=== PATIENT | male | born 1965 | race Caucasian/White ===

== ENCOUNTER 2016-09-09 08:03 | Emergency (ER) | payer OTHER ==
--- NOTE | 2016-09-09 10:40 | DIAGNOSTIC IMAGING REPORT ---
PROCEDURE: XR SHOULDER 2 OR MORE VW-RIGHT INDICATION: TRAUMA/INJURY TECHNIQUE: Three views. COMPARISON: Right shoulder films 03/13/15 FINDINGS: Normal mineralization. Dystrophic calcifications at the distal clavicle with chronic distal clavicular elevation, AC joint, and CC interval separation. No acute fractures. Glenohumeral joint is in normal alignment. No suspicious or new soft tissue calcifications. Visible rib arcs underlying lungs are normal. IMPRESSION: 1. 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
--- NOTE | 2016-09-09 11:12 | ED CLINICAL REPORT ---
Clinical Report - Physicians/Mid Levels [facility] [address] [place] [address] 09/09/2016 8:05 Patient: KALE PHILIP Time Seen: 0955. Arrived- By private vehicle. Historian- patient. HISTORY OF PRESENT ILLNESS Chief Complaint: Injury to the right shoulder and Chief Complaint- fall about a month ago. The injury happened a month ago. Occurred at home. ( rotator cuff injury and "scrapping" "bicep relocation"). Fell. Patient denies injury to the head or neck. No other injury. REVIEW OF SYSTEMS No swelling, weakness, suspected foreign body or skin laceration. All systems otherwise negative, except as recorded above. PAST HISTORY See nurses notes. Medications: None. Allergies: Soma. SOCIAL HISTORY Smoker- current status unknown. No alcohol use or drug use. Is a local resident. ADDITIONAL NOTES The nursing notes have been reviewed. PHYSICAL EXAM Vital Signs: 09/09/2016 08:26 BP: 135/89. HR: 66. RR: 18. O2 saturation: 100%. Temp: 98.1 F. Pain level now: 5/10. Blood pressure normal. Oxygen saturation normal. Appearance: Alert. Not oriented X3. No acute distress. Head: Head atraumatic. Neck: Normal inspection. Neck supple. C-spine non-tender. No vertebral tenderness. No JVD. CVS: Normal heart rate and rhythm. Heart sounds normal. Pulses normal. Respiratory: No respiratory distress. Breath sounds normal. Chest nontender. Abdomen: No visible injury. Soft and nontender. Bowel sounds normal. Extremities: (mild tenderness over the anterior aspect of the right shoulder. Evidence ofsurgery to the shoulder. Surgical sites are completely healed and scarred. No signs of infection. No crepitus. No bony antibodies. Arms are soft. Radial pulse is 2+ and symmetrical to the contralateral side. No other tenderness noted. Patient has decreased range of motion of the shoulder with abduction.). Extremities otherwise negative. LABS, X-RAYS, AND EKG Rt Shoulder X-ray: (PROCEDURE: XR SHOULDER 2 OR MORE VW-RIGHT INDICATION: TRAUMA/INJURY TECHNIQUE: Three views. COMPARISON: Right shoulder films 03/13/15 FINDINGS: Normal mineralization. Dystrophic calcifications at the distal clavicle with chronic distal clavicular elevation, AC joint, and CC interval separation. No acute fractures. Glenohumeral joint is in normal alignment. No suspicious or new soft tissue calcifications. Visible rib arcs underlying lungs are normal. IMPRESSION: 1. 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 PROGRESS AND PROCEDURES Course of Care: The patient is a pleasant 51-year-old male presenting for evaluation of right-sided shoulder pain. The patient has prior surgery to the area. In further discussion with the patient, reports that he had had surgery on the shoulder in the past with good results. Reports that she had injured the shoulder after having sustained a fall approximately one month ago. Patient has not been able to follow-up with his orthopedic surgeon since then. Patient is agreeable to the treatment plan with radiographs. Pain medication has been ordered. Patient appears nontoxic. Does not the patient has septic joint or compartment syndrome. Significant evaluated. No acute osseous abnormalities noted. Patientwith signs of prior surgery and bone spurs. No acute fractures or dislocation. I discussion with patient in regards to follow-up with his primary care doctor and orthopedic surgeon. Patient reports that he had had good results after having the surgery and following up with physical therapy. Had recommended patient to follow up with physical therapy again under thesupervision of his primary care doctor or orthopedic surgeon. Patient continues to be in no acute distress. No signs of neurovascular compromise. The patient has compartment syndrome orseptic joint. Patient is afebrile. I discussed with patient in regards to workup, diagnosis, home care, follow-up, and return precautions. All questions answered. The patient expressed understanding of these instructions and was agreeable To them. Disposition: Discharged. Condition: good. CLINICAL IMPRESSION 09/09/2016 08:26 BP: 135/89. HR: 66. RR: 18. O2 saturation: 100%. Temp: 98.1 F. Pain level now: 5/10. Blood pressure normal. Oxygen saturation normal. Acute traumatic pain in the right upper extremity (shoulder)(exacerbation). INSTRUCTIONS Warnings: GENERAL WARNINGS: Return or contact your physician immediately if your condition worsens or changes unexpectedly, if not improving as expected, or if other problems arise. Specifically return if pain, vomiting, bleeding, breathing difficulty or fever. Your Current Medications: CONTINUE TAKING THE FOLLOWING MEDICATIONS: None*. Prescription Medications: [place] 5 mg / 325 mg tablets: take 1 orally every 6 hours as needed for pain. Dispense twelve (12). No refill. Substitution is permissible. Follow-up: Return to the emergency department as needed. Screening today revealed the patient's blood pressure to be in the normal range. The patient should follow up with a primary care provider for blood pressure management. Understanding of the discharge instructions verbalized by patient. Follow-up with: Follow up. Reason for referral: Your surgeon in 1 week to recheck today's concerns. Summary of care provided to patient via paper. Follow-up with: [facility], , , [address], , [place], [id number] Follow up. Reason for referral: Contact if you are unable to get a primary care doctor. Summary of care provided to patient via paper. (Electronically signed by Roel Blanchard Dr. 09/11/2016 1:26)
--- NOTE | 2016-09-09 11:12 | ED NURSING NOTES ---
Clinical Report - Nurses [facility] [address] [place] [address] 09/09/2016 8:05 Patient: KALE PHILIP TRIAGE Triage time 08:26. Acuity: LEVEL 4. Chief Complaint: INJURY TO RIGHT SHOULDER. Alert. No acute distress. GAURAV COMA SCORE: [place] Coma Scale: 15- eyes open spontaneously (4); best verbal response- oriented x 4 (5); best motor response- obeys commands (6). --08:31 Megan Muir R.N. 08:26 09/09/16. BP: 135/89. HR: 66. RR: 18. O2 saturation: 100% on room air. Temp: 98.1 F (oral). Pain level now: 01/07. --08:31 Megan Muir R.N. Weight: 79.3 kg stated. Height/Length: 69 inches Per Patient. BMI: 25.8. --08:28 Megan Muir R.N. Medications None. --08:27 Megan Muir R.N. Medication/allergy information source: the patient. --08:31 Megan Muir R.N. Allergies Soma. --08:27 Megan Muir R.N. History Arrived by private vehicle. Historian: patient. Accompanied by family. Primary physician (none). This occurred (end of July 2016). Mechanism of injury: fell. ( previous surgery on same shoulder). SOCIAL HX: Heavy tobacco smoker- 1 pack per day. No alcohol use or drug use. FALL RISK ASSESSMENT: Fall risk assessment completed. No fall risk identified. FUNCTIONAL ASSESSMENT: Functional assessment: no impairments noted. LEARNING NEEDS ASSESSMENT: The learning needs assessment revealed no barriers. --08:31 Megan Muir R.N. PROBLEMS: Hypoglycemia. Protein deficient. UTI - Urinary Tract Infection. Laceration. Head Injury. Prior Injury, Same Area. --08:28 Megan Muir R.N. ADDITIONAL SURGERIES: Appendectomy. Knee Surgery. Right shoulder surgery. Tonsillectomy. --08:28 Megan Muir R.N. Assessment GENERAL / NEURO / PSYCH: Alert. Oriented X 4. Appears in no acute distress. Patient appears calm and cooperative. ( drinking his coffee). RESPIRATORY: Respirations not labored. SKIN: Skin is warm and dry. --08:31 Megan Muir R.N. Interventions ID band on patient. To treatment room. --08:31 Megan Muir R.N. PHYSICAL ASSESSMENT 08:33 09/09/16. Ambulatory to room. Patient gowned. GENERAL / NEURO / PSYCH: Oriented X 4. Alert. Appears in no acute distress. SKIN: Skin intact. Skin is warm and dry. --08:33 Megan Muir R.N. NURSING PROGRESS NOTES 08:34 09/09/16. Call light placed in reach. Side rails up x 1. Bed placed in lowest position. Brakes of bed on. --08:34 Megan Muir R.N. 10:09 09/09/2016 Hydrocodone-APAP (Hydrocodone-Acetaminophen) PO 5/325 mg Tablets 2 tab given. Allergies verified, confirmed 5 rights and sedative warning given to the patient. --10:09 Veronica Roper 10:09 09/09/2016 Toradol (Ketorolac Tromethamine) IM 60 mg given. Given in the right gluteus samm. --10:09 Veronica Roper 10:30. The patient is resting quietly. Overall patient status is the same- he states feels the same. GENERAL / NEURO / PSYCH: Alert. Oriented X 4. RESPIRATORY: No respiratory distress. SKIN: Skin is warm and dry. --12:04 Megan Muir R.N. 11:20. The patient is calm. Overall patient status is improved- he states feels the same (pt given food and drink by ERMD, questions were answered by the doctor). GENERAL / NEURO / PSYCH: Alert. Oriented X 4. RESPIRATORY: No respiratory distress. SKIN: Skin is warm and dry. --12:05 Megan Muir R.N. DISPOSITION / DISCHARGE Departure time: 1120. Condition at departure: stable. No learning barriers present. Discharge instructions provided and reviewed with the patient. Reviewed medication(s). Prescription(s) given to the patient. Patient verbalized understanding. Written instructions provided in Irish. The patient was discharged home and accompanied by laser beam machine operator. He left the Emergency Department ambulatory and via private vehicle. FALL RISK ASSESSMENT: Fall risk assessment completed. No fall risk identified. --12:03 Megan Muir R.N. 11:20 09/09/16. BP: 150/98. HR: 74. RR: 16. O2 saturation: 100% on room air. Pain level now: 10/10. Additional comments: ERMD aware of BP with discharge instructions to follow-up with primary care concerning it. --12:03 Megan Muir R.N. Locked/Released at 09/09/2016 12:06 by Megan Muir R.N.
--- NOTE | 2016-09-09 11:12 | ED NURSING NOTES ---
Clinical Report - Nurses [facility] [address] [place] [address] 09/09/2016 8:05 Patient: KALE PHILIP TRIAGE Triage time 08:26. Acuity: LEVEL 4. Chief Complaint: INJURY TO RIGHT SHOULDER. Alert. No acute distress. GAURAV COMA SCORE: [place] Coma Scale: 15- eyes open spontaneously (4); best verbal response- oriented x 4 (5); best motor response- obeys commands (6). --08:31 Megan Muir R.N. 08:26 09/09/16. BP: 135/89. HR: 66. RR: 18. O2 saturation: 100% on room air. Temp: 98.1 F (oral). Pain level now: 01/07. --08:31 Megan Muir R.N. Weight: 79.3 kg stated. Height/Length: 69 inches Per Patient. BMI: 25.8. --08:28 Megan Muir R.N. Medications None. --08:27 Megan Muir R.N. Medication/allergy information source: the patient. --08:31 Megan Muir R.N. Allergies Soma. --08:27 Megan Muir R.N. History Arrived by private vehicle. Historian: patient. Accompanied by family. Primary physician (none). This occurred (end of July 2016). Mechanism of injury: fell. ( previous surgery on same shoulder). SOCIAL HX: Heavy tobacco smoker- 1 pack per day. No alcohol use or drug use. FALL RISK ASSESSMENT: Fall risk assessment completed. No fall risk identified. FUNCTIONAL ASSESSMENT: Functional assessment: no impairments noted. LEARNING NEEDS ASSESSMENT: The learning needs assessment revealed no barriers. --08:31 Megan Muir R.N. PROBLEMS: Hypoglycemia. Protein deficient. UTI - Urinary Tract Infection. Laceration. Head Injury. Prior Injury, Same Area. --08:28 Megan Muir R.N. ADDITIONAL SURGERIES: Appendectomy. Knee Surgery. Right shoulder surgery. Tonsillectomy. --08:28 Megan Muir R.N. Assessment GENERAL / NEURO / PSYCH: Alert. Oriented X 4. Appears in no acute distress. Patient appears calm and cooperative. ( drinking his coffee). RESPIRATORY: Respirations not labored. SKIN: Skin is warm and dry. --08:31 Megan Muir R.N. Interventions ID band on patient. To treatment room. --08:31 Megan Muir R.N. PHYSICAL ASSESSMENT 08:33 09/09/16. Ambulatory to room. Patient gowned. GENERAL / NEURO / PSYCH: Oriented X 4. Alert. Appears in no acute distress. SKIN: Skin intact. Skin is warm and dry. --08:33 Megan Muir R.N. NURSING PROGRESS NOTES 08:34 09/09/16. Call light placed in reach. Side rails up x 1. Bed placed in lowest position. Brakes of bed on. --08:34 Megan Muir R.N. 10:09 09/09/2016 Hydrocodone-APAP (Hydrocodone-Acetaminophen) PO 5/325 mg Tablets 2 tab given. Allergies verified, confirmed 5 rights and sedative warning given to the patient. --10:09 Veronica Roper 10:09 09/09/2016 Toradol (Ketorolac Tromethamine) IM 60 mg given. Given in the right gluteus samm. --10:09 Veronica Roper 10:30. The patient is resting quietly. Overall patient status is the same- he states feels the same. GENERAL / NEURO / PSYCH: Alert. Oriented X 4. RESPIRATORY: No respiratory distress. SKIN: Skin is warm and dry. --12:04 Megan Muir R.N. 11:20. The patient is calm. Overall patient status is improved- he states feels the same (pt given food and drink by ERMD, questions were answered by the doctor). GENERAL / NEURO / PSYCH: Alert. Oriented X 4. RESPIRATORY: No respiratory distress. SKIN: Skin is warm and dry. --12:05 Megan Muir R.N. DISPOSITION / DISCHARGE Departure time: 1120. Condition at departure: stable. No learning barriers present. Discharge instructions provided and reviewed with the patient. Reviewed medication(s). Prescription(s) given to the patient. Patient verbalized understanding. Written instructions provided in Irish. The patient was discharged home and accompanied by solar site assessment specialist. He left the Emergency Department ambulatory and via private vehicle. FALL RISK ASSESSMENT: Fall risk assessment completed. No fall risk identified. --12:03 Megan Muir R.N. 11:20 09/09/16. BP: 150/98. HR: 74. RR: 16. O2 saturation: 100% on room air. Pain level now: 10/10. Additional comments: ERMD aware of BP with discharge instructions to follow-up with primary care concerning it. --12:03 Megan Muir R.N. Locked/Released at 09/09/2016 12:06 by Megan Muir R.N.
--- NOTE | 2016-09-09 11:12 | ED CLINICAL REPORT ---
Clinical Report - Physicians/Mid Levels [facility] [address] [place] [address] 09/09/2016 8:05 Patient: KALE PHILIP Time Seen: 0955. Arrived- By private vehicle. Historian- patient. HISTORY OF PRESENT ILLNESS Chief Complaint: Injury to the right shoulder and Chief Complaint- fall about a month ago. The injury happened a month ago. Occurred at home. ( rotator cuff injury and "scrapping" "bicep relocation"). Fell. Patient denies injury to the head or neck. No other injury. REVIEW OF SYSTEMS No swelling, weakness, suspected foreign body or skin laceration. All systems otherwise negative, except as recorded above. PAST HISTORY See nurses notes. Medications: None. Allergies: Soma. SOCIAL HISTORY Smoker- current status unknown. No alcohol use or drug use. Is a local resident. ADDITIONAL NOTES The nursing notes have been reviewed. PHYSICAL EXAM Vital Signs: 09/09/2016 08:26 BP: 135/89. HR: 66. RR: 18. O2 saturation: 100%. Temp: 98.1 F. Pain level now: 5/10. Blood pressure normal. Oxygen saturation normal. Appearance: Alert. Not oriented X3. No acute distress. Head: Head atraumatic. Neck: Normal inspection. Neck supple. C-spine non-tender. No vertebral tenderness. No JVD. CVS: Normal heart rate and rhythm. Heart sounds normal. Pulses normal. Respiratory: No respiratory distress. Breath sounds normal. Chest nontender. Abdomen: No visible injury. Soft and nontender. Bowel sounds normal. Extremities: (mild tenderness over the anterior aspect of the right shoulder. Evidence ofsurgery to the shoulder. Surgical sites are completely healed and scarred. No signs of infection. No crepitus. No bony antibodies. Arms are soft. Radial pulse is 2+ and symmetrical to the contralateral side. No other tenderness noted. Patient has decreased range of motion of the shoulder with abduction.). Extremities otherwise negative. LABS, X-RAYS, AND EKG Rt Shoulder X-ray: (PROCEDURE: XR SHOULDER 2 OR MORE VW-RIGHT INDICATION: TRAUMA/INJURY TECHNIQUE: Three views. COMPARISON: Right shoulder films 03/13/15 FINDINGS: Normal mineralization. Dystrophic calcifications at the distal clavicle with chronic distal clavicular elevation, AC joint, and CC interval separation. No acute fractures. Glenohumeral joint is in normal alignment. No suspicious or new soft tissue calcifications. Visible rib arcs underlying lungs are normal. IMPRESSION: 1. 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 PROGRESS AND PROCEDURES Course of Care: The patient is a pleasant 51-year-old male presenting for evaluation of right-sided shoulder pain. The patient has prior surgery to the area. In further discussion with the patient, reports that he had had surgery on the shoulder in the past with good results. Reports that she had injured the shoulder after having sustained a fall approximately one month ago. Patient has not been able to follow-up with his orthopedic surgeon since then. Patient is agreeable to the treatment plan with radiographs. Pain medication has been ordered. Patient appears nontoxic. Does not the patient has septic joint or compartment syndrome. Significant evaluated. No acute osseous abnormalities noted. Patientwith signs of prior surgery and bone spurs. No acute fractures or dislocation. I discussion with patient in regards to follow-up with his primary care doctor and orthopedic surgeon. Patient reports that he had had good results after having the surgery and following up with physical therapy. Had recommended patient to follow up with physical therapy again under thesupervision of his primary care doctor or orthopedic surgeon. Patient continues to be in no acute distress. No signs of neurovascular compromise. The patient has compartment syndrome orseptic joint. Patient is afebrile. I discussed with patient in regards to workup, diagnosis, home care, follow-up, and return precautions. All questions answered. The patient expressed understanding of these instructions and was agreeable To them. Disposition: Discharged. Condition: good. CLINICAL IMPRESSION 09/09/2016 08:26 BP: 135/89. HR: 66. RR: 18. O2 saturation: 100%. Temp: 98.1 F. Pain level now: 5/10. Blood pressure normal. Oxygen saturation normal. Acute traumatic pain in the right upper extremity (shoulder)(exacerbation). INSTRUCTIONS Warnings: GENERAL WARNINGS: Return or contact your physician immediately if your condition worsens or changes unexpectedly, if not improving as expected, or if other problems arise. Specifically return if pain, vomiting, bleeding, breathing difficulty or fever. Your Current Medications: CONTINUE TAKING THE FOLLOWING MEDICATIONS: None*. Prescription Medications: [place] 5 mg / 325 mg tablets: take 1 orally every 6 hours as needed for pain. Dispense twelve (12). No refill. Substitution is permissible. Follow-up: Return to the emergency department as needed. Screening today revealed the patient's blood pressure to be in the normal range. The patient should follow up with a primary care provider for blood pressure management. Understanding of the discharge instructions verbalized by patient. Follow-up with: Follow up. Reason for referral: Your surgeon in 1 week to recheck today's concerns. Summary of care provided to patient via paper. Follow-up with: [facility], , , [address], , [place], [id number] Follow up. Reason for referral: Contact if you are unable to get a primary care doctor. Summary of care provided to patient via paper. (Electronically signed by Roel Blanchard Dr. 09/11/2016 1:26)
--- NOTE | 2016-09-09 11:13 | ED ORDER SUMMARY ---
..... Patient: KALE PHILIP OrderSheet [facility] VisitID: [id number] [address] [place] [address] 51y, M Registration Date/Time: 09/09/2016 ORDER SHEET Weight: 79.3 kg (stated) Allergies: Soma GENERAL ORDERS: Shoulder 2V or more Right Urgent (10:00 09/09/2016 Reinier Ornelas) (Ack 10:10 [facility] ER Tech1) (11:13 NH[facility] ER Tech1) MEDICATION ORDERS: Hydrocodone-APAP PO 10/650 mg (NOW, HIGH ALERT MEDICATION) (10:01 09/09/2016 Reinier Ornelas) (10:09 [facility]) Toradol IM 60 mg (NOW) (10:02 09/09/2016 Reinier Ornelas) (10:09 [facility]) IV FLUIDS: ORDER SHEET NOTES: [Electronically signed by Megan Muir R.N. (12:06 09/09/2016)] [Electronically signed by Roel Blanchard Dr. (01:26 09/11/2016)] [Electronically locked/signed by Megan Muir R.N. (12:06 09/09/2016)]
--- NOTE | 2016-09-09 11:13 | ED ORDER SUMMARY ---
..... Patient: KALE PHILIP OrderSheet [facility] VisitID: [id number] [address] [place] [address] 51y, M Registration Date/Time: 09/09/2016 ORDER SHEET Weight: 79.3 kg (stated) Allergies: Soma GENERAL ORDERS: Shoulder 2V or more Right Urgent (10:00 09/09/2016 Reinier Ornelas) (Ack 10:10 [facility] ER Tech1) (11:13 [facility] ER Tech1) MEDICATION ORDERS: Hydrocodone-APAP PO 10/650 mg (NOW, HIGH ALERT MEDICATION) (10:01 09/09/2016 Reinier Ornelas) (10:09 [facility]) Toradol IM 60 mg (NOW) (10:02 09/09/2016 Reinier Ornelas) (10:[facility] IV FLUIDS: ORDER SHEET NOTES: [Electronically signed by Megan Muir R.N. (12:06 09/09/2016)] [Electronically signed by Roel Blanchard Dr. (01:26 09/11/2016)] [Electronically locked/signed by Megan Muir R.N. (12:06 09/09/2016)]
--- NOTE | 2016-09-11 01:26 | ED MED RECONCILIATION SUMMARY ---
Patient: KALE PHILIP Medication Reconciliation Report [facility] VisitID: [id number] [address] [place] [address] 51y, M Registration Date/Time: 09/09/2016 Weight: 79.3 kg Height/Length: 69 in. BMI: 25.8 ALLERGIES: Soma The patient's Home Medications are listed below: NONE. The source(s) of the original Home Medication information: patient The following Medications were given to the patient in the Emergency Department: Hydrocodone-APAP [PO] PO 2 tab, administered: 09/09/2016 10:09:00 AM Toradol [IM] IM 60 mg, administered: 09/09/2016 10:09:00 AM The following Medications were prescribed to the patient: [place] 5 mg / 325 mg tablets: take 1 orally every 6 hours as needed for pain. Dispense twelve (12). No refill. Substitution is permissible. -- Roel Blanchard Dr.
--- NOTE | 2016-09-11 01:26 | ED MAR SUMMARY ---
..... Medication Administration Record [facility] [address] [place] [address] Patient: KALE PHILIP Visit ID: [id number] 51y, M Weight: 79.3 kg Height/Length: 69 in BMI: 25.8 ALLERGIES: Soma Given 10:09/09/2016 Veronica Roper, Medication Administered: HYDROCODONE-APAP [PO] (HYDROCODONE-ACETAMINOPHEN), Dose: 2 tab 5/325 mg Tablets PO. Medication Ordered: Hydrocodone-APAP PO 10/650 mg (NOW, HIGH ALERT MEDICATION). Given 10:09/09/2016 Veronica Roper, Medication Administered: TORADOL [IM] (KETOROLAC TROMETHAMINE), Dose: 60 mg IM. Medication Ordered: Toradol IM 60 mg (NOW).
--- NOTE | 2016-09-11 01:26 | ED MAR SUMMARY ---
..... Medication Administration Record [facility] [address] [place] [address] Patient: KALE PHILIP Visit ID: [id number] 51y, M Weight: 79.3 kg Height/Length: 69 in BMI: 25.8 ALLERGIES: Soma Given 10:09/09/2016 Veronica Roper, Medication Administered: HYDROCODONE-APAP [PO] (HYDROCODONE-ACETAMINOPHEN), Dose: 2 tab 5/325 mg Tablets PO. Medication Ordered: Hydrocodone-APAP PO 10/650 mg (NOW, HIGH ALERT MEDICATION). Given 10:09/09/2016 Veronica Roper, Medication Administered: TORADOL [IM] (KETOROLAC TROMETHAMINE), Dose: 60 mg IM. Medication Ordered: Toradol IM 60 mg (NOW).
--- NOTE | 2016-09-11 01:26 | ED DISCHARGE INSTRUCTIONS ---
Patient: KALE PHILIP General Instructions [facility] VisitID: [id number] [address] [place] [address] 51y, M Registration Date/Time: 09/09/2016 09/09/2016 08:26 BP: 135/89. HR: 66. RR: 18. O2 saturation: 100%. Temp: 98.1 F. Pain level now: 5/10. Blood pressure normal. Oxygen saturation normal. Acute traumatic pain in the right upper extremity (shoulder)(exacerbation). INSTRUCTIONS Warnings: GENERAL WARNINGS: Return or contact your physician immediately if your condition worsens or changes unexpectedly, if not improving as expected, or if other problems arise. Specifically return if pain, vomiting, bleeding, breathing difficulty or fever. Your Current Medications: CONTINUE TAKING THE FOLLOWING MEDICATIONS: None*. Prescription Medications: [place] 5 mg / 325 mg tablets: take 1 orally every 6 hours as needed for pain. Dispense twelve (12). No refill. Substitution is permissible. Follow-up: Return to the emergency department as needed. Screening today revealed the patient's blood pressure to be in the normal range. The patient should follow up with a primary care provider for blood pressure management. Understanding of the discharge instructions verbalized by patient. Follow-up with: Follow up. Reason for referral: Your surgeon in 1 week to recheck today's concerns. Summary of care provided to patient via paper. Follow-up with: [facility], , , [address], , [place], [id number] Follow up. Reason for referral: Contact if you are unable to get a primary care doctor. Summary of care provided to patient via paper. ADDITIONAL INFORMATION Shoulder Pain (Uncertain Cause) Shoulder pain often arises from the structures that surround the shoulder joint (the joint capsule, ligaments, tendons, muscles, and bursa). The joint itself contains cartilage that can become worn out or injured and can also be a source of pain. The correct treatment requires knowing the cause of the pain. Sometimes it is difficult to diagnose the exact cause of shoulder pain and referral to a specialist may be required. You may eventually need special tests such as CT scan, MRI, or arthroscopy (a procedure that uses special instruments to look inside the joint through a small incision). Shoulder pain can be treated initially with a sling or shoulder immobilizer and anti-inflammatory medicines such as ibuprofen. Special shoulder exercises may be needed. Follow-up with a specialist is important when pain is severe or does not go away after a few weeks. Home Care: If a sling was provided, leave it in place for the time advised by your doctor. If you are unsure how long to wear it, ask for advice. If the sling becomes loose, adjust it so that your forearm is level with the ground and the shoulder feels well supported. Apply an ice pack (ice cubes in a plastic bag, wrapped in a towel) over the injured area for 20 minutes every 1 to 2 hours the first day for pain relief. Continue this 3 to 4 times a day until the pain and swelling go away. You may use acetaminophen (Tylenol) or ibuprofen (Motrin, Advil) to control pain, unless another pain medicine was prescribed. (NOTE: If you have chronic liver or kidney disease or ever had a stomach ulcer or GI bleeding, talk with your doctor before using these medicines.) Shoulder pain may seem worse at night, when there is less to distract you from the pain. If you sleep on your side, try to keep your weight off your painful shoulder. Propping pillows behind you may prevent you from rolling over onto that shoulder during sleep. Shoulder joints become stiff if left in a sling for too long. Horok-ci-lqtttn exercises should usually be started within the first 10 days after injury. Consult your doctor on what type of exercises to do and how soon to start. You may remove the sling to shower or bathe. Follow Up with your doctor, or as advised by our staff, if you are not starting to improve within the next 5 days. Get Prompt Medical Attention if any of the following occur: Pain or swelling increases Hand or fingers becomes cold, blue, numb, or tingly Large amount of bruising of the shoulder or upper arm Hydrocodone Bitartrate, Acetaminophen Oral tablet What is this medicine? ACETAMINOPHEN; HYDROCODONE (a set a INDIO sen fen; alfonso droe KOE done) is a pain reliever. It is used to treat mild to moderate pain. How should I use this medicine? Take this medicine by mouth. Swallow it with a full glass of water. Follow the directions on the prescription label. If the medicine upsets your stomach, take the medicine with food or milk. Do not take more than you are told to take. Talk to your drip molder regarding the use of this medicine in children. This medicine is not approved for use in children. What side effects may I notice from receiving this medicine? Side effects that you should report to your doctor or health healthcare receptionist as soon as possible: allergic reactions like skin rash, itching or hives, swelling of the face, lips, or tongue breathing problems confusion feeling faint or lightheaded, falls stomach pain yellowing of the eyes or skin Side effects that usually do not require medical attention (report to your doctor or health healthcare receptionist if they continue or are bothersome): nausea, vomiting stomach upset What may interact with this medicine? alcohol antihistamines isoniazid medicines for depression, anxiety, or psychotic disturbances medicines for sleep muscle relaxants naltrexone narcotic medicines (opiates) for pain phenobarbital ritonavir tramadol What if I miss a dose? If you miss a dose, take it as soon as you can. If it is almost time for your next dose, take only that dose. Do not take double or extra doses. Where should I keep my medicine? Keep out of the reach of children. This medicine can be abused. Keep your medicine in a safe place to protect it from theft. Do not share this medicine with anyone. Selling or giving away this medicine is dangerous and against the law. Store at room temperature between 15 and 30 degrees C (59 and 86 degrees F). Protect from light. Keep container tightly closed. Throw away any unused medicine after the expiration date. Discard unused medicine and used packaging carefully. Pets and children can be harmed if they find used or lost packages. What should I tell my health care provider before I take this medicine? They need to know if you have any of these conditions: brain tumor Crohn's disease, inflammatory bowel disease, or ulcerative colitis drink more than 3 alcohol-containing drinks per day drug abuse or addiction head injury heart or circulation problems kidney disease or problems going to the bathroom liver disease lung disease, asthma, or breathing problems an unusual or allergic reaction to acetaminophen, hydrocodone, other opioid analgesics, other medicines, foods, dyes, or preservatives or trying to get breast-feeding What should I watch for while using this medicine? Tell your doctor or health healthcare receptionist if your pain does not go away, if it gets worse, or if you have new or a different type of pain. You may develop tolerance to the medicine. Tolerance means that you will need a higher dose of the medicine for pain relief. Tolerance is normal and is expected if you take the medicine for a long time. Do not suddenly stop taking your medicine because you may develop a severe reaction. Your body becomes used to the medicine. This does NOT mean you are addicted. Addiction is a behavior related to getting and using a drug for a non-medical reason. If you have pain, you have a medical reason to take pain medicine. Your doctor will tell you how much medicine to take. If your doctor wants you to stop the medicine, the dose will be slowly lowered over time to avoid any side effects. You may get drowsy or dizzy when you first start taking the medicine or change doses. Do not drive, use machinery, or do anything that may be dangerous until you know how the medicine affects you. Stand or sit up slowly. There are different types of narcotic medicines (opiates) for pain. If you take more than one type at the same time, you may have more side effects. Give your health care provider a list of all medicines you use. Your doctor will tell you how much medicine to take. Do not take more medicine than directed. Call emergency for help if you have problems breathing. The medicine will cause constipation. Try to have a bowel movement at least every 2 to 3 days. If you do not have a bowel movement for 3 days, call your doctor or health healthcare receptionist. Too much acetaminophen can be very dangerous. Do not take Tylenol (acetaminophen) or medicines that contain acetaminophen with this medicine. Many non-prescription medicines contain acetaminophen. Always read the labels carefully. You have been given the following additional information: Shoulder Pain (Uncertain Cause) Hydrocodone Bitartrate, Acetaminophen Oral tablet (Electronically signed by Roel Blanchard Dr. 09/11/2016 1:26)
--- NOTE | 2016-09-11 01:26 | ED MED RECONCILIATION SUMMARY ---
Patient: KALE PHILIP Medication Reconciliation Report [facility] VisitID: [id number] [address] [place] [address] 51y, M Registration Date/Time: 09/09/2016 Weight: 79.3 kg Height/Length: 69 in. BMI: 25.8 ALLERGIES: Soma The patient's Home Medications are listed below: NONE. The source(s) of the original Home Medication information: patient The following Medications were given to the patient in the Emergency Department: Hydrocodone-APAP [PO] PO 2 tab, administered: 09/09/2016 10:09:00 AM Toradol [IM] IM 60 mg, administered: 09/09/2016 10:09:00 AM The following Medications were prescribed to the patient: [place] 5 mg / 325 mg tablets: take 1 orally every 6 hours as needed for pain. Dispense twelve (12). No refill. Substitution is permissible. -- Roel Blanchard Dr.
--- NOTE | 2016-09-11 01:26 | ED DISCHARGE INSTRUCTIONS ---
Patient: KALE PHILIP General Instructions [facility] VisitID: [id number] [address] [place] [address] 51y, M Registration Date/Time: 09/09/2016 09/09/2016 08:26 BP: 135/89. HR: 66. RR: 18. O2 saturation: 100%. Temp: 98.1 F. Pain level now: 5/10. Blood pressure normal. Oxygen saturation normal. Acute traumatic pain in the right upper extremity (shoulder)(exacerbation). INSTRUCTIONS Warnings: GENERAL WARNINGS: Return or contact your physician immediately if your condition worsens or changes unexpectedly, if not improving as expected, or if other problems arise. Specifically return if pain, vomiting, bleeding, breathing difficulty or fever. Your Current Medications: CONTINUE TAKING THE FOLLOWING MEDICATIONS: None*. Prescription Medications: [place] 5 mg / 325 mg tablets: take 1 orally every 6 hours as needed for pain. Dispense twelve (12). No refill. Substitution is permissible. Follow-up: Return to the emergency department as needed. Screening today revealed the patient's blood pressure to be in the normal range. The patient should follow up with a primary care provider for blood pressure management. Understanding of the discharge instructions verbalized by patient. Follow-up with: Follow up. Reason for referral: Your surgeon in 1 week to recheck today's concerns. Summary of care provided to patient via paper. Follow-up with: [facility], , , [address], , [place], [id number] Follow up. Reason for referral: Contact if you are unable to get a primary care doctor. Summary of care provided to patient via paper. ADDITIONAL INFORMATION Shoulder Pain (Uncertain Cause) Shoulder pain often arises from the structures that surround the shoulder joint (the joint capsule, ligaments, tendons, muscles, and bursa). The joint itself contains cartilage that can become worn out or injured and can also be a source of pain. The correct treatment requires knowing the cause of the pain. Sometimes it is difficult to diagnose the exact cause of shoulder pain and referral to a specialist may be required. You may eventually need special tests such as CT scan, MRI, or arthroscopy (a procedure that uses special instruments to look inside the joint through a small incision). Shoulder pain can be treated initially with a sling or shoulder immobilizer and anti-inflammatory medicines such as ibuprofen. Special shoulder exercises may be needed. Follow-up with a specialist is important when pain is severe or does not go away after a few weeks. Home Care: If a sling was provided, leave it in place for the time advised by your doctor. If you are unsure how long to wear it, ask for advice. If the sling becomes loose, adjust it so that your forearm is level with the ground and the shoulder feels well supported. Apply an ice pack (ice cubes in a plastic bag, wrapped in a towel) over the injured area for 20 minutes every 1 to 2 hours the first day for pain relief. Continue this 3 to 4 times a day until the pain and swelling go away. You may use acetaminophen (Tylenol) or ibuprofen (Motrin, Advil) to control pain, unless another pain medicine was prescribed. (NOTE: If you have chronic liver or kidney disease or ever had a stomach ulcer or GI bleeding, talk with your doctor before using these medicines.) Shoulder pain may seem worse at night, when there is less to distract you from the pain. If you sleep on your side, try to keep your weight off your painful shoulder. Propping pillows behind you may prevent you from rolling over onto that shoulder during sleep. Shoulder joints become stiff if left in a sling for too long. Jhzdh-di-ueksyr exercises should usually be started within the first 10 days after injury. Consult your doctor on what type of exercises to do and how soon to start. You may remove the sling to shower or bathe. Follow Up with your doctor, or as advised by our staff, if you are not starting to improve within the next 5 days. Get Prompt Medical Attention if any of the following occur: Pain or swelling increases Hand or fingers becomes cold, blue, numb, or tingly Large amount of bruising of the shoulder or upper arm Hydrocodone Bitartrate, Acetaminophen Oral tablet What is this medicine? ACETAMINOPHEN; HYDROCODONE (a set a INDIO sen fen; alfonso droe KOE done) is a pain reliever. It is used to treat mild to moderate pain. How should I use this medicine? Take this medicine by mouth. Swallow it with a full glass of water. Follow the directions on the prescription label. If the medicine upsets your stomach, take the medicine with food or milk. Do not take more than you are told to take. Talk to your mattress filler regarding the use of this medicine in children. This medicine is not approved for use in children. What side effects may I notice from receiving this medicine? Side effects that you should report to your doctor or health home health care worker as soon as possible: allergic reactions like skin rash, itching or hives, swelling of the face, lips, or tongue breathing problems confusion feeling faint or lightheaded, falls stomach pain yellowing of the eyes or skin Side effects that usually do not require medical attention (report to your doctor or health home health care worker if they continue or are bothersome): nausea, vomiting stomach upset What may interact with this medicine? alcohol antihistamines isoniazid medicines for depression, anxiety, or psychotic disturbances medicines for sleep muscle relaxants naltrexone narcotic medicines (opiates) for pain phenobarbital ritonavir tramadol What if I miss a dose? If you miss a dose, take it as soon as you can. If it is almost time for your next dose, take only that dose. Do not take double or extra doses. Where should I keep my medicine? Keep out of the reach of children. This medicine can be abused. Keep your medicine in a safe place to protect it from theft. Do not share this medicine with anyone. Selling or giving away this medicine is dangerous and against the law. Store at room temperature between 15 and 30 degrees C (59 and 86 degrees F). Protect from light. Keep container tightly closed. Throw away any unused medicine after the expiration date. Discard unused medicine and used packaging carefully. Pets and children can be harmed if they find used or lost packages. What should I tell my health care provider before I take this medicine? They need to know if you have any of these conditions: brain tumor Crohn's disease, inflammatory bowel disease, or ulcerative colitis drink more than 3 alcohol-containing drinks per day drug abuse or addiction head injury heart or circulation problems kidney disease or problems going to the bathroom liver disease lung disease, asthma, or breathing problems an unusual or allergic reaction to acetaminophen, hydrocodone, other opioid analgesics, other medicines, foods, dyes, or preservatives or trying to get breast-feeding What should I watch for while using this medicine? Tell your doctor or health home health care worker if your pain does not go away, if it gets worse, or if you have new or a different type of pain. You may develop tolerance to the medicine. Tolerance means that you will need a higher dose of the medicine for pain relief. Tolerance is normal and is expected if you take the medicine for a long time. Do not suddenly stop taking your medicine because you may develop a severe reaction. Your body becomes used to the medicine. This does NOT mean you are addicted. Addiction is a behavior related to getting and using a drug for a non-medical reason. If you have pain, you have a medical reason to take pain medicine. Your doctor will tell you how much medicine to take. If your doctor wants you to stop the medicine, the dose will be slowly lowered over time to avoid any side effects. You may get drowsy or dizzy when you first start taking the medicine or change doses. Do not drive, use machinery, or do anything that may be dangerous until you know how the medicine affects you. Stand or sit up slowly. There are different types of narcotic medicines (opiates) for pain. If you take more than one type at the same time, you may have more side effects. Give your health care provider a list of all medicines you use. Your doctor will tell you how much medicine to take. Do not take more medicine than directed. Call emergency for help if you have problems breathing. The medicine will cause constipation. Try to have a bowel movement at least every 2 to 3 days. If you do not have a bowel movement for 3 days, call your doctor or health home health care worker. Too much acetaminophen can be very dangerous. Do not take Tylenol (acetaminophen) or medicines that contain acetaminophen with this medicine. Many non-prescription medicines contain acetaminophen. Always read the labels carefully. You have been given the following additional information: Shoulder Pain (Uncertain Cause) Hydrocodone Bitartrate, Acetaminophen Oral tablet (Electronically signed by Roel Blanchard Dr. 09/11/2016 1:26)
== END 2016-09-09 11:22 | disposition home or self-care (01) ==
LOC: ED SRH 08:03
DX: S49.91XA Unspecified injury of right shoulder and upper arm, initial encounter (principal); W19.XXXA Unspecified fall, initial encounter; Y93.9 Activity, unspecified; Y92.009 Unspecified place in unspecified non-institutional (private) residence as the place of occurrence of the external cause; Y99.8 Other external cause status; F17.210 Nicotine dependence, cigarettes, uncomplicated; Z88.8 Allergy status to other drugs, medicaments and biological substances